=== PATIENT | male | born 1940 | race Caucasian/White ===

== ENCOUNTER 2017-12-13 08:07 | Day surgery (SDC) | payer MEDICARE, OTHER ==
[2017-12-13] MEDS ORDERED: Sodium Chloride 0.9% 10 ML Syringe FLUSH PRN (09:27)
[2017-12-13] MEDS ORDERED: Propofol 200 MG/20 ML SDV IV ONE (10:00)
--- NOTE | 2017-12-15 11:06 | OR ---
DATE OF OPERATION: 12/13/2017 SURGEON: Jose Delgado MD PREOPERATIVE DIAGNOSIS: Cataract, right eye. POSTOPERATIVE DIAGNOSIS: Cataract, right eye. OPERATION PERFORMED: Phacoemulsification of cataract right eye with the placement of an Rao model AR40e, 20.5 diopter, foldable posterior chamber intraocular lens. DENTURE PACKER: None. DESCRIPTION OF PROCEDURE: Peribulbar anesthetic was performed using a mixture of 2% lidocaine with Wydase. The patient was prepped and draped in the usual fashion. A 3 mm fornix based conjunctival flap was performed at the 10 o'clock position. Hemostasis was obtained using diathermy, and a 2.8 mm grooved near clear corneal incision was then made. A stab incision was made into the anterior chamber at the 12 o'clock position and a second stab wound incision was made underlying the grooved near clear corneal incision. Viscoat was instilled into the anterior chamber, and a continuous tear capsulotomy was performed. Hydrodissection was accomplished with balanced salt solution, and the nucleus was removed in a divide and conquer fashion. The remaining cortical material was removed with the irrigation and aspiration unit. Viscoat was instilled into the anterior chamber, and an Rao model AR40e, 20.5 diopter, foldable, posterior chamber intraocular lens was placed into the capsular bag, the haptics being positioned at the 1 and 7 o'clock positions. The residual Viscoat was removed from the anterior chamber and the anterior chamber reformed with balanced salt solution. The wound was checked and noted to be watertight. The conjunctiva was secured in its original position with diathermy. Alphagan and Maxitrol Ointment were then placed into the patient's eye. The patient tolerated the procedure well and it was without complication. Elapsed phacoemulsification time was 20.8 seconds. Postoperative instructions as related to activities as well as medications were reviewed with the patient. The patient was instructed to return to see me on the day following surgery for the first postoperative check. The patient was also instructed to contact me prior to that time if the patient were to have any problems. /[id number] DEG/MODL CC: MELVINA VILLEGAS, [facility]
== END 2017-12-13 12:14 | disposition home or self-care (01) ==
LOC: FB.SDS 08:07
PROVIDERS: ATTEND Ophthalmology
DX: H26.9 Unspecified cataract (principal); K21.9 Gastro-esophageal reflux disease without esophagitis; E78.00 Pure hypercholesterolemia, unspecified; Z79.82 Long term (current) use of aspirin; Z79.899 Other long term (current) drug therapy
CPT/HCPCS: 00142; 66984; C1780; J2704

== ENCOUNTER 2022-09-05 22:45 | Emergency (ER) | payer MEDICARE, OTHER ==
[2022-09-05 23:19] LABS: ESTIMATED GFR 46 mL/min (>60)
[2022-09-05 23:53] LABS: CORONAVIRUS COVID-19 NAA POSITIVE (NEGATIVE)
[2022-09-06] MEDS ORDERED: Azithromycin 500 MG Tab PO ONE (00:21)
[2022-09-06] MEDS ORDERED: Dexamethasone 4 MG Tab PO ONE (00:21)
== END 2022-09-06 01:18 | disposition home or self-care (01) ==
LOC: FB.ED 22:45
DX: U07.1 COVID-19 (principal); R79.82 Elevated C-reactive protein (CRP); E78.00 Pure hypercholesterolemia, unspecified; K21.9 Gastro-esophageal reflux disease without esophagitis; M19.90 Unspecified osteoarthritis, unspecified site; Z79.01 Long term (current) use of anticoagulants; Z79.899 Other long term (current) drug therapy
CPT/HCPCS: 0241U; 36415; 71045; 80053; 81001; 85025; 85379; 86140; 99284; A9270-GY; J8540

== ENCOUNTER 2022-12-02 22:45 | Observation (INO) | payer MEDICARE, OTHER ==
[2022-12-02 23:36] LABS: ESTIMATED GFR 76 mL/min (>60)
[2022-12-02] MEDS ORDERED: [UNRECOGNIZED DRUG - REMARK] PO PRN (23:55)
[2022-12-02] MEDS ORDERED: Zolpidem 5 MG Tab PO PRN (23:55)
[2022-12-03] MEDS: cloNIDine 0.1 MG Tab PO ONE (00:10)
[2022-12-03] MEDS ORDERED: Acetaminophen 500 MG Tab PO PRN (07:00)
[2022-12-03 07:05] LABS: ESTIMATED GFR 86 mL/min (>60)
[2022-12-03] MEDS ORDERED: Melatonin 3 MG Tab PO PRN (08:39)
[2022-12-03] MEDS: Acetaminophen 500 MG Tab PO SCH (08:57)
[2022-12-03] MEDS ORDERED: Sertraline 50 MG Tab PO SCH (09:00)
[2022-12-03] MEDS ORDERED: FENOFIBRATE NANOCRYSTALLIZED 145 MG PO SCH (09:00)
[2022-12-03] MEDS: Sertraline 100 MG Tab *PTOM PO SCH (09:05)
[2022-12-03] MEDS ORDERED: Mirtazapine 15 MG Tab PO SCH ×2 (21:00)
[2022-12-03] MEDS ORDERED: atorvaSTATin 10 MG Tab *PTOM PO SCH (21:00)
== END 2022-12-03 14:02 | disposition home or self-care (01) ==
LOC: FB.ED 22:45 → FB.MS 23:49
PROVIDERS: ADMIT Family Medicine; ATTEND Family Medicine
DX: R41.0 Disorientation, unspecified (principal); E78.2 Mixed hyperlipidemia; G47.00 Insomnia, unspecified; K21.9 Gastro-esophageal reflux disease without esophagitis; F32.A Depression, unspecified; Z79.899 Other long term (current) drug therapy; Z79.01 Long term (current) use of anticoagulants
CPT/HCPCS: 36415; 70450; 70551; 80048; 80053; 81001; 82550; 82947; 83735; 84100; 84484; 85025; 93005; 99223; 99238; 99285; A9270-GY; G0378

== ENCOUNTER 2025-04-30 07:18 | Day surgery (SDC) | payer MEDICARE, OTHER ==
[2025-04-30] MEDS ORDERED: fentaNYL 100 MCG/2 ML SDV IV ONE (07:19)
[2025-04-30] MEDS ORDERED: Sodium Chloride 0.9% 10 ML Syringe IV ONE (07:19)
[2025-04-30] MEDS ORDERED: Midazolam 1 MG/ML 2 ML SDV IV ONE (07:19)
[2025-04-30] MEDS ORDERED: Lactated Ringers 1,000 ML IV PRN (07:30)
[2025-04-30] MEDS ORDERED: Sodium Chloride 0.9% 10 ML Syringe FLUSH PRN (07:30)
[2025-04-30] MEDS: acetaZOLAMIDE 500 MG Cap.ER PO ONE (09:55)
== END 2025-04-30 10:26 | disposition home or self-care (01) ==
LOC: FB.SDS 07:18
PROVIDERS: ATTEND Ophthalmology
DX: H25.12 Age-related nuclear cataract, left eye (principal); H40.9 Unspecified glaucoma; N18.30 Chronic kidney disease, stage 3 unspecified; E78.5 Hyperlipidemia, unspecified; Z79.82 Long term (current) use of aspirin; Z79.899 Other long term (current) drug therapy
CPT/HCPCS: 00142; 66984; 99100; A9270; J2250; J3010; V2632